=== PATIENT | female | born 1980 ===

== ENCOUNTER 2018-02-12 18:32 | Emergency (ER) | payer MEDICAID ==
[2018-02-12 18:32] VITALS: BMI 25.0
[2018-02-12] MEDS ORDERED: Sodium Chloride 0.9% 1,000 ML IV ONE (19:15)
[2018-02-12 19:29] LABS: BASO % 0.5 % (0.0-2.0); EOS # 0.2 K/uL (0.0-0.7); EOS % 1.7 % (0.0-4.0); HEMOGLOBIN 12.8 g/dL (11.0-16.0); LYMPH # 2.4 K/uL (1.0-4.3); LYMPH % 26.8 % (20.0-40.0); MEAN CORPUSCULAR HEMOGLOBIN 28.6 pg (27.0-31.0); MONO # 0.6 K/uL (0.0-0.8); MONO % 6.4 % (0.0-10.0); NEUT # 5.7 K/uL (1.8-7.0); NEUT % 64.6 % (50.0-75.0); NRBC % 0.1 % (0.0-2.0); RBC 4.48 Mil/uL (3.80-5.20); WHITE BLOOD COUNT 8.9 K/uL (4.8-10.8)
[2018-02-12 19:32] LABS: HCG,QUALITATIVE URINE NEGATIVE (NEGATIVE)
[2018-02-12 19:33] LABS: SQUAMOUS EPITHIAL 1 /hpf (0-5); URINE BACTERIA RARE (<OCC); URINE BILIRUBIN NEGATIVE (NEGATIVE); URINE BLOOD NEGATIVE (NEGATIVE); URINE CLARITY Clear (Clear); URINE COLOR Yellow (YELLOW); URINE GLUCOSE (UA) NORMAL (Normal); URINE LEUKOCYTE ESTERASE NEG Leu/uL (Negative); URINE PROTEIN NEGATIVE (NEGATIVE); URINE UROBILINOGEN NORMAL mg/dL (0.2-1.0)
--- NOTE | 2018-02-12 19:39 | C.PDOC ---
History Of Present Illness 38 year old female presents to the ER with a complaint of crampy right sided abdominal pain for the past week. Patient reports having a normal bowel movement today. Denies constipation, nausea, or vomiting. Time Seen by Provider: 02/12/18 19:08 Chief Complaint (Nursing): Abdominal Pain History Per: Patient History/Exam Limitations: no limitations Onset/Duration Of Symptoms: Days Current Symptoms Are (Timing): Still Present Location Of Pain/Discomfort: Other (Right sided) Radiation Of Pain To:: None Quality Of Discomfort: Cramping Associated Symptoms: denies: Nausea, Vomiting, Constipation Exacerbating Factors: None Alleviating Factors: None Last Bowel Movement: Today Recent travel outside of the [place]: No Abnormal Vaginal Bleeding: No Past Medical History Reviewed: Historical Data, Nursing Documentation, Vital Signs Vital Signs: Last Vital Signs Temp 98.3 F 02/12/18 18:37 Pulse 56 L 02/12/18 18:37 Resp 16 02/12/18 18:37 BP 137/87 02/12/18 18:37 Pulse Ox 98 02/12/18 19:45 - Medical History PMH: Gall Bladder Disease Surgical History: Endoscopy, - [facility] Procedures D & C NEC (02/13/14) Family History: States: Diabetes - Social History Hx Tobacco Use: No Hx Alcohol Use: No Hx Substance Use: No - Immunization History Hx Tetanus Toxoid Vaccination: No Hx Influenza Vaccination: No Hx Pneumococcal Vaccination: No Review Of Systems Constitutional: Negative for: Fever, Chills Cardiovascular: Negative for: Chest Pain, Palpitations Respiratory: Negative for: Cough, Shortness of Breath Gastrointestinal: Positive for: Abdominal Pain. Negative for: Nausea, Vomiting , Constipation Physical Exam - Physical Exam Appears: Non-toxic, No Acute Distress, Other (Obese) Skin: Normal Color, Warm, Dry Head: Atraumatic, Normacephalic Eye(s): bilateral: Normal Inspection Oral Mucosa: Moist Chest: Symmetrical, No Tenderness Cardiovascular: Rhythm Regular Respiratory: Normal Breath Sounds, No Rales, No Rhonchi, No Wheezing Gastrointestinal/Abdominal: Soft, No Tenderness, Other (Dull to percussion on right side) Neurological/Psych: Oriented x3, Normal Speech ED Course And Treatment - Laboratory Results Result Diagrams: 02/12/18 19:25 02/12/18 19:25 Lab Interpretation: Normal (ua neg.) Urine POC: Negative O2 Sat by Pulse Oximetry: 98 (Room air) Pulse Ox Interpretation: Normal - Radiology CXR: Interpreted by Me CXR Interpretation: Yes: No Acute Disease - Other Rad abd x 2 X-Ray: Interpreted by Me (+FOS) Progress Note: Blood work, urinalysis, and obstructive series ordered. Toradol and IV fluids administered. Disposition Doctor Will See Patient In The: Office Counseled Patient/Family Regarding: Studies Performed, Diagnosis - Disposition Disposition: HOME/ ROUTINE Disposition Time: 19:53 Condition: GOOD Forms: [facility] (Swedish) - Clinical Impression Clinical Impression: Constipation - Scribe Statement The provider has reviewed the documentation as recorded by the Scribe Kaushik Larkin All medical record entries made by the Lilyibaneesh were at my direction and personally dictated by me. I have reviewed the chart and agree that the record accurately reflects my personal performance of the history, physical exam, medical decision making, and the department course for this patient. I have also personally directed, reviewed, and agree with the discharge instructions and disposition.
[2018-02-12 19:45] LABS: ALB/GLOB RATIO 1.6 (1.0-2.1); ALBUMIN 4.7 g/dL (3.5-5.0); ALT/SGPT 128 U/L (9-52); AST/SGOT 62 U/L (14-36); BLOOD UREA NITROGEN 15 mg/dL (7-17); CALCIUM 9.5 mg/dl (8.6-10.4); GFR AFRICAN-AMERICAN > 60; GFR NON-AFRICAN AMERICAN > 60; LIPASE 54 U/L (23-300)
[2018-02-12 20:28] VITALS: PULSE 65; RESP 18; TEMP 98.2; O2SAT 99
[2018-02-12 20:30] VITALS: BP 122/74
--- NOTE | 2018-02-13 08:54 | RAD ---
Date of service: 02/12/2018 PROCEDURE: Radiographs of the chest and abdomen (obstructive series) HISTORY: crampy R abd x 1 week COMPARISON: No prior. TECHNIQUE: AP radiograph of the chest, with upright and supine radiographs of the abdomen. FINDINGS: CHEST: Lungs: No acute pulmonary disease appreciated bilaterally. Cardiovascular: Normal size heart. No pulmonary vascular congestion. Pleura: No pleural fluid. No pneumothorax. Other findings: None. ABDOMEN AND PELVIS: Bowel: Unremarkable bowel gas pattern. No evidence of mechanical obstruction. Free air: None. Bones: Unremarkable. Other findings: Surgical is identified in the right upper quadrant abdomen as well as the right lower quadrant. IMPRESSION: Unremarkable radiographs of chest and abdomen. No evidence of mechanical bowel obstruction ; postoperative changes noted right upper and lower quadrants.
== END 2018-02-12 20:28 | disposition home or self-care (01) ==
LOC: C.ER 18:32
DX: K59.00 Constipation, unspecified (principal)
CPT/HCPCS: 74022; 80053; 81001; 83690; 84703; 85025; 96361; 96374; 99285; J1885; J7030